=== PATIENT | female | born 1995 | race Caucasian/White ===

== ENCOUNTER 2017-06-03 14:22 | Emergency (ER) | payer BC, OTHER ==
[~2017-06-03] VITALS: Ht 165.1 cm; Wt 59.0 kg
[2017-06-03 15:58] LABS: BASOPHILS % (AUTO) 0 % (0-10); EOSINOPHILS # (AUTO) 0.2 10^3/uL (0.0-0.3); EOSINOPHILS % (AUTO) 2 % (0-10); HEMATOCRIT 42 % (35-52); HEMOGLOBIN 14.4 G/DL (11.5-16.0); LYMPHOCYTES # (AUTO) 3.2 X 10^3 (1.0-4.0); LYMPHOCYTES % (AUTO) 41 % (12-44); MEAN CORPUSCULAR HEMOGLOBIN 30 PG (25-34); MEAN CORPUSCULAR HGB CONC 34 G/DL (32-36); MEAN CORPUSCULAR VOLUME 88 FL (80-99); MEAN PLATELET VOLUME 12.3 FL (7.4-10.4); MONOCYTES # (AUTO) 0.5 X 10^3 (0.0-1.0); MONOCYTES % (AUTO) 6 % (0-12); NEUTROPHILS % (AUTO) 51 % (42-75); PLATELET COUNT 229 10^3/uL (130-400); RED BLOOD COUNT 4.78 10^6/uL (4.35-5.85); RED CELL DISTRIBUTION WIDTH 12.9 % (10.0-14.5); WHITE BLOOD COUNT 7.8 10^3/uL (4.3-11.0)
[2017-06-03] MEDS ORDERED: ONDANSETRON 4 MG/2 ML (SDV) Z0FRAN IVP ONE (16:00)
[2017-06-03] MEDS ORDERED: NS IV 1000 ML 1,000 ML IV SCH (16:00)
[2017-06-03] MEDS ORDERED: fentaNYL INJECTION 100 MCG/2 ML AMP IVP ONE (16:00)
[2017-06-03 16:14] LABS: BILIRUBIN,URINE NEGATIVE (NEGATIVE); CLARITY,URINE CLEAR; COLOR,URINE YELLOW; GLUCOSE, URINE (UA) NEGATIVE (NEGATIVE); KETONES,URINE NEGATIVE (NEGATIVE); LEUKOCYTE ESTERASE ,URINE NEGATIVE (NEGATIVE); NITRITE,URINE NEGATIVE (NEGATIVE); PH,URINE 7 (5-9); PROTEIN,URINE 2+ (NEGATIVE); UROBILINOGEN,URINE NORMAL (NORMAL)
[2017-06-03] MEDS ORDERED: NS 100 ML (IVPB) BAG IV ONE (16:15)
[2017-06-03] MEDS ORDERED: IOHEXOL 350 MG/ML 100 ML (OMNIPAQUE 350) VIAL IV ONE (16:15)
[2017-06-03] MEDS ORDERED: CATHETER FLUSH 10 ML SYR IV PRN (16:15)
--- NOTE | 2017-06-03 16:18 | ED Abdominal Pain ---
General Chief Complaint: Abdominal/GI Problems Stated Complaint: ABD PAIN Nursing Triage Note: PATIENT STATES THAT 5AM TODAY SHE STARTED HAVING ABDOMINAL PAIN ON HER LEFT LOWER SIDE. IT HAS GOTTEN WORSE AND NOTHING MAKES IT BETTER. SHE PASSED OUT X1 TODAY AND VOMITTED X2. Sepsis Screen: No Definite Risk Source of Information: Patient Exam Limitations: No Limitations History of Present Illness Date Seen by Provider: Jun 03, 2017 Time Seen By Provider: 16:16 Initial Comments To ER with reports of lower abdominal pain that awakened her from sleep this morning at about 5 AM. Pain was suprapubic and right lower quadrant. She's had nausea without vomiting. No fevers. There is some concern of possible pinworm infestation but she took hzal-nch-dbdutxy pinworm treatment about a week ago. Timing/Duration: 1-2 Days Severity/Quality: Cramping Radiation: No Radiation Activities at Onset: None Associated Symptoms: Nausea/Vomiting Allergies and Home Medications Allergies Coded Allergies: No Known Drug Allergies (Unverified , 06/03/17) Review of Systems Constitutional: see HPI, chills EENTM: No Symptoms Reported Respiratory: No Symptoms Reported Cardiovascular: No Symptoms Reported Gastrointestinal: See HPI, Abdominal Pain Genitourinary: No Symptoms Reported Musculoskeletal: no symptoms reported Skin: no symptoms reported Psychiatric/Neurological: No Symptoms Reported Endocrine: No Symptoms Reported Past Xbrsldc-Ayaqnv-Akmnqs Hx Patient Social History Alcohol Use: Denies Use Recreational Drug Use: No Smoking Status: Never a Smoker 2nd Hand Smoke Exposure: No Recent Foreign Travel: No Contact w/Someone Who Travel: No Recent Infectious Disease Expo: No Recent Hopitalizations: No Seasonal Allergies Seasonal Allergies: No Surgeries History of Surgeries: Yes (BREAST AUGMENTATION, WISDOM TEETH) Cardiovascular History of Cardiac Disorders: No Neurological History of Neurological Disord: No Genitourinary History of Genitourinary Disor: No Gastrointestinal History of Gastrointestinal Di: No Musculoskeletal History of Musculoskeletal Dis: No Endocrine History of Endocrine Disorders: No HEENT History of HEENT Disorders: No Cancer History of Cancer: No Psychosocial History of Psychiatric Problem: No Integumentary History of Skin or Integumenta: No Blood Transfusions History of Blood Disorders: No Physical Exam Vital Signs VS - Last 72 Hours, by Label 06/03/17 06/03/17 06/03/17 06/03/17 15:27 16:15 17:10 17:25 Temp 98.2 98.2 98.2 98.2 Pulse 98 98 Resp 20 18 B/P (MAP) 132/76 (94) Pulse Ox 98 98 O2 Delivery Room Air Capillary Refill : Less Than 3 Seconds General Appearance: WD/WN, no apparent distress HEENT: PERRL/EOMI, normal ENT inspection Neck: non-tender, full range of motion Respiratory: normal breath sounds, no respiratory distress, no accessory muscle use Gastrointestinal: normal bowel sounds, soft, tenderness Extremities: normal range of motion, non-tender Neurologic/Psychiatric: alert, normal mood/affect, oriented x 3 Skin: normal color, warm/dry Progress/Results/Core Measures Results/Orders Lab Results Laboratory Tests Test 06/03/17 15:50 06/03/17 15:55 Range/Units White Blood Count 7.8 4.3-11.0 10^3/uL Red Blood Count 4.78 4.35-5.85 10^6/uL Hemoglobin 14.4 11.5-16.0 G/DL Hematocrit 42 35-52 % Mean Corpuscular Volume 88 80-99 FL Mean Corpuscular Hemoglobin 30 25-34 PG Mean Corpuscular Hemoglobin Concent 34 32-36 G/DL Red Cell Distribution Width 12.9 10.0-14.5 % Platelet Count 229 130-400 10^3/uL Mean Platelet Volume 12.3 H 7.4-10.4 FL Neutrophils (%) (Auto) 51 42-75 % Lymphocytes (%) (Auto) 41 12-44 % Monocytes (%) (Auto) 6 0-12 % Eosinophils (%) (Auto) 2 0-10 % Basophils (%) (Auto) 0 0-10 % Neutrophils # (Auto) 4.0 1.8-7.8 X 10^3 Lymphocytes # (Auto) 3.2 1.0-4.0 X 10^3 Monocytes # (Auto) 0.5 0.0-1.0 X 10^3 Eosinophils # (Auto) 0.2 0.0-0.3 10^3/uL Basophils # (Auto) 0.0 0.0-0.1 10^3/uL Sodium Level 143 135-145 MMOL/L Potassium Level 3.6 3.6-5.0 MMOL/L Chloride Level 106 98-107 MMOL/L Carbon Dioxide Level 24 21-32 MMOL/L Anion Gap 13 5-14 MMOL/L Blood Urea Nitrogen 14 7-18 MG/DL Creatinine 0.79 0.60-1.30 MG/DL Estimat Glomerular Filtration Rate > 60 BUN/Creatinine Ratio 18 Glucose Level 95 70-105 MG/DL Calcium Level 9.7 8.5-10.1 MG/DL Total Bilirubin 0.5 0.1-1.0 MG/DL Aspartate Amino Transf (AST/SGOT) 131 H 5-34 U/L Alanine Aminotransferase (ALT/SGPT) 50 0-55 U/L Alkaline Phosphatase 40 40-136 U/L Total Protein 7.5 6.4-8.2 GM/DL Albumin 4.5 3.2-4.5 GM/DL Urine Color YELLOW Urine Clarity CLEAR Urine pH 7 5-9 Urine Specific [place] 1.015 L 1.016-1.022 Urine Protein 2+ H NEGATIVE Urine Glucose (UA) NEGATIVE NEGATIVE Urine Ketones NEGATIVE NEGATIVE Urine Nitrite NEGATIVE NEGATIVE Urine Bilirubin NEGATIVE NEGATIVE Urine Urobilinogen NORMAL NORMAL MG/DL Urine Leukocyte Esterase NEGATIVE NEGATIVE Urine RBC (Auto) NEGATIVE NEGATIVE Urine RBC NONE /HPF Urine WBC NONE /HPF Urine Squamous Epithelial Cells 5-10 /HPF Urine Crystals NONE /LPF Urine Bacteria NEGATIVE /HPF Urine Casts NONE /LPF Urine Mucus NEGATIVE /LPF Urine Culture Indicated NO My Orders Orders - CRYSTAL WHITEHEAD APRN Ua Culture If Indicated (06/03/17 15:42) Cbc With Automated Diff (06/03/17 15:42) Urine Bedside (06/03/17 15:42) Saline Lock/Iv-Start (06/03/17 15:42) Comprehensive Metabolic Panel (06/03/17 15:42) Ns Iv 1000 Ml (Sodium Chloride 0.9%) (06/03/17 16:00) Ondansetron Injection (Zofran Injectio (06/03/17 16:00) Fentanyl Injection (Sublimaze Injection (06/03/17 16:00) Ct Abd/Pelv W (Appendicitis) (06/03/17 16:07) Iohexol Injection (Omnipaque 350 Mg/Ml 1 (06/03/17 16:15) Sodium Chloride Flush (Catheter Flush Sy (06/03/17 16:15) Ns (Ivpb) (Sodium Chloride 0.9% Ivpb Bag (06/03/17 16:15) Pharmacy Communication (Pharmacy Communi (06/03/17 16:08) Rx-Ondansetron Po (Rx-Zofran Po) (06/03/17 17:10) Rx-Hyoscyamine Tab (Rx-Levsin Sl) (06/03/17 17:10) Ketorolac Injection (Toradol Injection) (06/03/17 17:15) Iv Push [employer] (06/03/17 ) Medications Given in ED Vital Signs/I&O Vital Sign - Last 12Hours 06/03/17 06/03/17 06/03/17 06/03/17 15:27 16:15 17:10 17:25 Temp 98.2 98.2 98.2 98.2 Pulse 98 98 Resp 20 18 B/P (MAP) 132/76 (94) Pulse Ox 98 98 O2 Delivery Room Air Blood Pressure Mean: 94 Diagnostic Imaging Diagonstic Imaging: CT Comments NAME: WILLIE PORTER [facility] REC#: [id number] PT STATUS: REG ER : 1995 PHYSICIAN: CRYSTAL WHITEHEAD APRN ADMIT DATE: 06/03/17/ER Draft Date of Exam:06/03/17 CT ABD/PELV W (APPENDICITIS) PROCEDURE: CT abdomen and pelvis with contrast, rule out appendicitis. TECHNIQUE: Multiple contiguous axial images were obtained through the abdomen and pelvis after the administration of intravenous contrast. INDICATION: Severe right low abdominal pain. FINDINGS: The appendix is visualized and appears normal without evidence of edema or periappendiceal fluid. No evidence of appendicolith. There are fluid-filled loops of small bowel in the pelvis. There is also liquid stool noted in the sigmoid colon and rectum. There is no evidence of constipation. There is no evidence of mesenteric edema along the bowel. There are no pelvic masses. There is no free fluid. The liver appears normal. Gallbladder and bile ducts are normal. The pancreas and spleen are normal. Adrenal glands and kidneys are normal. There is normal enhancement of the abdominal organs and vessels following IV contrast. The lung bases are clear. IMPRESSION: 1. The appendix is visualized and normal. 2. There is liquid stool within the distal colon as well as fluid-filled loops of small bowel in the pelvis. This may be secondary to enteritis. 3. There is no free air or free fluid present. Dictated on workstation # [id number] Dict: 06/03/17 1652 Trans: 06/03/17 1700 [facility] [id number] Interpreted by: CORONA WEAVER MD Electronically signed by: Departure Impression Impression: Primary Impression: Enteritis Disposition: HOME, SELF-CARE Condition: Improved Departure-Patient Inst. Decision time for Depature: 17:12 Referrals: BENI JEFFERY MD (PCP/Family) Primary Care Physician Patient Instructions: Acute Abdomen (Belly Pain), Adult (DC), Nausea and Vomiting, Adult Add. Discharge Instructions: 1. Clear liquids only for the rest of today. This would be Gatorade, Pedialyte, Jell-O or chicken broth. Starting tomorrow morning you may begin a Brat diet that is BRAT. Bananas rice applesauce and toast. Follow this for 12 hours and if she tolerate this okay you may resume a more normal diet tomorrow evening. All discharge instructions reviewed with patient and/or family. Voiced understanding. Work/School Note: Work Release Form Date Seen in the Emergency Department: Jun 03, 2017 Return to Work: Jun 05, 2017 CRYSTAL WHITEHEAD APRN Jun 03, 2017 16:18
[2017-06-03 16:19] LABS: BACTERIA,URINE NEGATIVE /HPF
[2017-06-03 16:26] LABS: ALANINE AMINOTRANSFERASE 50 U/L (0-55); ALBUMIN 4.5 GM/DL (3.2-4.5); ALKALINE PHOSPHATASE 40 U/L (40-136); BILIRUBIN,TOTAL 0.5 MG/DL (0.1-1.0); BUN/CREATININE RATIO 18; CALCIUM 9.7 MG/DL (8.5-10.1); CARBON DIOXIDE 24 MMOL/L (21-32); CHLORIDE 106 MMOL/L (98-107); CREATININE SERUM 0.79 MG/DL (0.60-1.30); GFR ESTIMATED > 60; GLUCOSE 95 MG/DL (70-105); POTASSIUM 3.6 MMOL/L (3.6-5.0); SODIUM 143 MMOL/L (135-145); TOTAL PROTEIN 7.5 GM/DL (6.4-8.2)
--- NOTE | 2017-06-03 17:00 | Diagnostic Imaging Report ---
PROCEDURE: CT abdomen and pelvis with contrast, rule out appendicitis. TECHNIQUE: Multiple contiguous axial images were obtained through the abdomen and pelvis after the administration of intravenous contrast. INDICATION: Severe right low abdominal pain. FINDINGS: The appendix is visualized and appears normal without evidence of edema or periappendiceal fluid. No evidence of appendicolith. There are fluid-filled loops of small bowel in the pelvis. There is also liquid stool noted in the sigmoid colon and rectum. There is no evidence of constipation. There is no evidence of mesenteric edema along the bowel. There are no pelvic masses. There is no free fluid. The liver appears normal. Gallbladder and bile ducts are normal. The pancreas and spleen are normal. Adrenal glands and kidneys are normal. There is normal enhancement of the abdominal organs and vessels following IV contrast. The lung bases are clear. IMPRESSION: 1. The appendix is visualized and normal. 2. There is liquid stool within the distal colon as well as fluid-filled loops of small bowel in the pelvis. This may be secondary to enteritis. 3. There is no free air or free fluid present. Dictated by: Dictated on workstation # [id number]
[2017-06-03] MEDS ORDERED: RX-HYOSCYAMINE 0.125 MG SL (LEVSIN) PPK#6 SL STA (17:10)
[2017-06-03] MEDS ORDERED: RX-ONDANSETRON 4 MG ODT (ZOFRAN) PPK #4 PO STA (17:10)
[2017-06-03] MEDS ORDERED: KETOROLAC 30 MG/ML VIAL IVP ONE (17:15)
[2017-06-03 17:25] VITALS: BP 128/70
== END 2017-06-03 17:25 | disposition home or self-care (01) ==
LOC: ER 14:25
DX: K52.9 Noninfective gastroenteritis and colitis, unspecified (principal)
CPT/HCPCS: 36415; 74177; 80053; 81000; 84703; 85025; 96361; 96374; 96375

== ENCOUNTER 2018-01-14 14:07 | Emergency (ER) | payer SELFPAY ==
[~2018-01-14] VITALS: Ht 162.6 cm; Wt 59.0 kg
--- NOTE | 2018-01-14 14:17 | ED Upper Extremity ---
General Chief Complaint: Upper Extremity Stated Complaint: POSSIBLE LT HAND INJ Source: patient Exam Limitations: no limitations History of Present Illness Date Seen by Provider: Jan 14, 2018 Time Seen by Provider: 14:15 Initial Comments Patient is 22-year-old female who presents to the emergency room with complaints of left hand pain after punching a brick pillar in her home. She reports she became very angry and struck the brick pillar with a closed fist. She complains of left hand pain. Onset: just prior to arrival Pain/Injury Location: left hand Method of Injury: direct blow Modifying Factors: Worse With Movement Allergies and Home Medications Allergies Coded Allergies: No Known Drug Allergies (Unverified , 06/03/17) Patient Home Medication List Home Medication List Reviewed: Yes Review of Systems Constitutional: see HPI; No chills, No fever Musculoskeletal: see HPI, joint pain All Other Systems Reviewed Negative Unless Noted: Yes (left hand) Past Lhkycvb-Ywtlzr-Atudoy Hx Past Med/Social Hx: Reviewed Nursing Past Med/Soc Hx Patient Social History 2nd Hand Smoke Exposure: No Recent Hopitalizations: No Seasonal Allergies Seasonal Allergies: No Past Medical History Surgeries: Yes (BREAST AUGMENTATION, WISDOM TEETH) Cardiac: No Neurological: No Genitourinary: No Gastrointestinal: No Musculoskeletal: No Endocrine: No HEENT: No Cancer: No Psychosocial: No Integumentary: No Blood Disorders: No Family Medical History Reviewed Nursing Family Hx Physical Exam Vital Signs Vital Signs - First Documented 01/14/18 14:14 Temp 99.0 Pulse 117 Resp 22 B/P (MAP) 161/101 (121) Pulse Ox 99 O2 Delivery Room Air Capillary Refill : Height, Weight, BMI Height: 5'5.00" Weight: 130lbs. 0oz. 58.396996xu; BMI Method:Stated General Appearance: WD/WN, no apparent distress Cardiovascular: normal peripheral pulses, regular rate, rhythm, no edema, no gallop, no JVD, no murmur Respiratory: chest non-tender, lungs clear, normal breath sounds, no respiratory distress, no accessory muscle use Hand: no evidence of injury, normal ROM (increased pain with range of motion.) , Left, bone tenderness Neurologic/Psychiatric: alert, normal mood/affect, oriented x 3 Skin: normal color, warm/dry Progress/Results/Core Measures Results/Orders My Orders Orders - ATIF WHITFIELD Hand, Left, 3 Views (01/14/18 14:14) Vital Signs/I&O 01/14/18 14:14 Temp 99.0 Pulse 117 Resp 22 B/P (MAP) 161/101 (121) Pulse Ox 99 O2 Delivery Room Air Progress Progress Note : Time: 14:49 Progress Note I have seen and evaluated the patient. I have informed her of normal imaging studies. She agrees with plans for discharge. Return precautions were given. Diagnostic Imaging Diagonstic Imaging: Xray Plain Films/CT/US/NM/MRI: hand Comments NAME: WILLIE PORTER [facility] REC#: [id number] PT STATUS: REG ER : 1995 PHYSICIAN: ATIF WHITFIELD ADMIT DATE: 01/14/18/ER Draft Date of Exam:01/14/18 HAND, LEFT, 3 VIEWS EXAMINATION: Left hand, three views. COMPARISON: None. HISTORY: 22-year-old female, punched a wall. Pain to the left fifth digit and at the level of the second through fifth metacarpophalangeal joints. FINDINGS: There is no identified acute fracture. There is no subluxation or dislocation. There is no radiopaque foreign body. Joint spaces are well-preserved. IMPRESSION: No acute bony abnormality of the left hand. Dictated on workstation # [id number] Dict: 01/14/18 1433 Trans: 01/14/18 1444 KB [id number] Interpreted by: DEBRA ANGUIANO MD Electronically signed by: Reviewed: Reviewed by Me Departure Impression Primary Impression: Contusion of multiple sites of right hand and wrist Disposition: 01 HOME, SELF-CARE Condition: Stable/Unchanged Departure-Patient Inst. Decision time for Depature: 14:41 Referrals: BENI JEFFERY MD (PCP/Family) Primary Care Physician Patient Instructions: Common Wrist Injuries (DC), Contusion (DC) Add. Discharge Instructions: You may use ibuprofen and Tylenol as directed by the bottle for pain. Ice to the sore area for 20 minute intervals. Follow-up with your primary care provider within 1 week for recheck. Return back to the emergency room for any worsening symptoms or concerns as needed. All discharge instructions reviewed with patient and/or family. Voiced understanding. ATIF WHITFIELD Jan 14, 2018 14:17
--- NOTE | 2018-01-14 14:45 | Diagnostic Imaging Report ---
EXAMINATION: Left hand, three views. COMPARISON: None. HISTORY: 22-year-old female, punched a wall. Pain to the left fifth digit and at the level of the second through fifth metacarpophalangeal joints. FINDINGS: There is no identified acute fracture. There is no subluxation or dislocation. There is no radiopaque foreign body. Joint spaces are well-preserved. IMPRESSION: No acute bony abnormality of the left hand. Dictated by: Dictated on workstation # [id number]
[2018-01-14 15:10] VITALS: BP 155/98
== END 2018-01-14 15:10 | disposition home or self-care (01) ==
LOC: EDUNIT# 14:07 → ER 14:09
DX: S60.211A Contusion of right wrist, initial encounter (principal); S60.221A Contusion of right hand, initial encounter; M79.642 Pain in left hand; W22.09XA Striking against other stationary object, initial encounter
CPT/HCPCS: 73130

== ENCOUNTER → 2018-02-13 | Outpatient (CLI) | payer OTHER ==
--- NOTE | 2018-02-13 10:13 | Diagnostic Imaging Report ---
PROCEDURE: MRI left upper extremity without contrast. TECHNIQUE: Multiplanar, multisequence non contrast-enhanced MRI of the left upper extremity was accomplished. INDICATION: Fall landing on to the left side in August. Patient has continued left shoulder pain and decreased range of motion. COMPARISON: No prior studies are available for comparison. FINDINGS: The biceps tendon is in a normal location within the bicipital groove. The marrow signal intensity of the left shoulder is normal. No definite fracture is identified. Glenohumeral and acromioclavicular alignment are normal. The subscapularis tendon of the rotator cuff appears intact. The supraspinatus and infraspinatus tendons of the rotator cuff appear intact. No tear or retraction is seen. No fluid is identified within the subacromial subdeltoid bursa. No joint effusion is identified. IMPRESSION: Unremarkable MRI of the left shoulder. Dictated by: Dictated on workstation # [id number]
== END ==
LOC: RAD 08:41
PROVIDERS: ATTEND Nurse Practitioner
DX: M25.512 Pain in left shoulder (principal); W19.XXXA Unspecified fall, initial encounter
CPT/HCPCS: 73221